=== PATIENT | female | born 1955 | race Two or more races ===

== ENCOUNTER 2023-07-29 11:24 | Inpatient (IN) | payer MEDICARE, MEDICAID ==
[~2023-07-29] VITALS: Ht 162.6 cm; Wt 74.6 kg
[2023-07-29] MEDS ORDERED: ONDANSETRON ODT 4 MG TAB PO ONE (12:45)
[2023-07-29] MEDS ORDERED: traMADol HCL 50 MG TAB PO ONE (12:45)
[2023-07-29 13:41] LABS: Basophils # (auto) 0.1 10 ^3/uL (0-0.2); Basophils % (auto) 0.9 % (0.0-2.0); Eosinophils # (auto) 0.1 10 ^3/uL (0-0.8); Eosinophils % (auto) 1.1 % (0.0-7.0); Hematocrit 37.1 % (36.0-46.0); Hemoglobin 12.4 g/dL (12.2-16.2); Lymphocytes # (auto) 2.2 10 ^3/uL (0.4-5.4); Lymphocytes % (auto) 20.4 % (10.0-50.0); Mean Corpuscular Hemoglobin 28.5 pg (28.0-32.0); Mean Corpuscular Hgb Conc. 33.3 g/dL (32.0-36.0); Mean Corpuscular Volume 85.6 fL (80.0-100.0); Monocytes # (auto) 0.9 10 ^3/uL (0-1.3); Monocytes % (auto) 8.5 % (0.0-12.0); Neutrophils # (auto) 7.6 10 ^3/uL (1.6-8.6); Neutrophils % (auto) 69.1 % (37.0-80.0); Nucleated Red Blood Cells % 0.1 %; Red Blood Cells 4.34 10^6/uL (4.0-5.20); Red Cell Distribution Width 14.1 % (11.8-14.3)
[2023-07-29 13:59] LABS: INR 1.09 (0.9-1.15); Partial Thromboplastin Time 29.9 SEC (24.5-34.5); Prothrombin Time 11.4 sec (9.3-11.8)
[2023-07-29 14:03] LABS: Alanine Aminotransferase 22 U/L (7-40); Albumin 4.7 g/dL (3.2-4.8); Alkaline Phosphatase 75 U/L (46-116); Anion Gap 9 (5-15); Aspartate Aminotransferase 19 U/L (13-40); Bilirubin, Total 0.5 mg/dL (0.2-1.0); Blood Urea Nitrogen 11 mg/dL (9-23); Calcium 9.5 mg/dL (8.5-10.1); Carbon Dioxide 26 mmol/L (20-30); Chloride 105 mmol/L (98-107); Glucose 111 mg/dL (74-106); Potassium 3.8 mmol/L (3.5-5.1); Sodium 140 mmol/L (136-145); Total Protein 7.7 g/dL (5.7-8.2)
[2023-07-29] MEDS ORDERED: DOCUSATE SOD 100 MG CAP PO PRN (16:30)
[2023-07-29] MEDS ORDERED: ONDANSETRON HCL 4 MG/2 ML VIAL IV PRN (16:30)
[2023-07-29] MEDS ORDERED: DEXTROSE (50%) 50ML SYRG IV PRN (16:30)
[2023-07-29] MEDS: ACCU-CHEK COMFORT CURVE STRIP VI SCH ×2 (16:56→22:09)
[2023-07-29] MEDS: InsuLIN REG 1unit/0.01ml Soln (100units/ml) SC SCH ×2 (16:56→22:12)
[2023-07-29 17:05] VITALS: PULSE 83; RESP 17; O2SAT 96
[2023-07-29 17:45] VITALS: BP 117/41; PULSE 72; RESP 20; TEMP 98.1; O2SAT 93
[2023-07-29] MEDS ORDERED: LOSA50TA46 PO (18:35)
[2023-07-29] MEDS ORDERED: CHOL20007 OR (18:35)
[2023-07-29] MEDS ORDERED: NIFE90TA75 PO (18:35)
[2023-07-29] MEDS ORDERED: PRAV20TA3 PO (18:35)
[2023-07-29] MEDS ORDERED: METF-490 PO (18:35)
[2023-07-29] MEDS: SODIUM CHLORIDE 0.9% 1,000 ML IV SCH (19:15)
[2023-07-29 19:30] VITALS: PULSE 78; RESP 18; O2SAT 96
[2023-07-29 22:00] VITALS: BP 132/57; PULSE 84; RESP 17; TEMP 98.6; O2SAT 96
[2023-07-29] MEDS: MORPHINE SULFATE INJ 2 MG/ml SYRG IV PRN (22:08)
[2023-07-29] MEDS ORDERED: traMADol HCL 50 MG TAB PO PRN (22:45)
[2023-07-30] VITALS (7 sets, daily range): BP systolic 124–151; BP diastolic 59–75; PULSE 69–89; RESP 14–18; TEMP 98.3–98.9; O2SAT 92–97
[2023-07-30 05:49] LABS: Basophils # (auto) 0.1 10 ^3/uL (0-0.2); Basophils % (auto) 0.8 % (0.0-2.0); Eosinophils # (auto) 0.2 10 ^3/uL (0-0.8); Eosinophils % (auto) 2.2 % (0.0-7.0); Hematocrit 35.7 % (36.0-46.0); Lymphocytes # (auto) 1.5 10 ^3/uL (0.4-5.4); Lymphocytes % (auto) 18.6 % (10.0-50.0); Mean Corpuscular Hemoglobin 28.9 pg (28.0-32.0); Mean Corpuscular Hgb Conc. 33.5 g/dL (32.0-36.0); Mean Corpuscular Volume 86.3 fL (80.0-100.0); Monocytes # (auto) 0.9 10 ^3/uL (0-1.3); Monocytes % (auto) 11.2 % (0.0-12.0); Neutrophils # (auto) 5.3 10 ^3/uL (1.6-8.6); Neutrophils % (auto) 67.2 % (37.0-80.0); Nucleated Red Blood Cells % 0.1 %; Red Blood Cells 4.13 10^6/uL (4.0-5.20); Red Cell Distribution Width 13.9 % (11.8-14.3); White Blood Cell 7.9 10^3/uL (4.4-10.8)
[2023-07-30] MEDS: InsuLIN REG 1unit/0.01ml Soln (100units/ml) SC SCH ×4 (06:10→21:20)
[2023-07-30] MEDS: ACCU-CHEK COMFORT CURVE STRIP VI SCH ×4 (06:10→21:19)
[2023-07-30 06:14] LABS: Alanine Aminotransferase 19 U/L (7-40); Albumin 4.1 g/dL (3.2-4.8); Alkaline Phosphatase 76 U/L (46-116); Anion Gap 7 (5-15); Aspartate Aminotransferase 10 U/L (13-40); BUN/Creatinine Ratio 18.6 (10.0-20.0); Blood Urea Nitrogen 11 mg/dL (9-23); Calcium 8.9 mg/dL (8.7-10.4); Carbon Dioxide 26 mmol/L (20-30); Chloride 107 mmol/L (98-107); Glucose 123 mg/dL (74-106); Sodium 140 mmol/L (136-145)
[2023-07-30 06:15] LABS: Bilirubin, Total 0.4 mg/dL (0.2-1.0); Total Protein 6.7 g/dL (5.7-8.2)
[2023-07-30] MEDS: SODIUM CHLORIDE 0.9% 1,000 ML IV SCH ×2 (12:02→21:19)
[2023-07-30] MEDS ORDERED: traMADol HCL 50 MG TAB PO PRN (12:45)
[2023-07-30 14:55] LABS: Urine Bacteria MOD /hpf (None Seen); Urine Blood Negative /uL (Negative); Urine Clarity Clear (Clear); Urine Color Colorless (Yellow); Urine Protein, UAD Negative (Negative); Urine Specific Gravity 1.008 (1.001-1.035); Urine Urobilinogen Normal (Negative); Urine WBC 3 /hpf (0 - 5); Urine pH 5.5 (5.0-8.0)
[2023-07-31 05:00] VITALS: BP 131/65; PULSE 60; RESP 14; TEMP 98.1; O2SAT 98
[2023-07-31 05:25] LABS: Basophils # (auto) 0.1 10 ^3/uL (0-0.2); Basophils % (auto) 1.3 % (0.0-2.0); Eosinophils # (auto) 0.2 10 ^3/uL (0-0.8); Eosinophils % (auto) 2.3 % (0.0-7.0); Hematocrit 36.3 % (36.0-46.0); Lymphocytes # (auto) 2.1 10 ^3/uL (0.4-5.4); Lymphocytes % (auto) 28.2 % (10.0-50.0); Mean Corpuscular Hemoglobin 28.4 pg (28.0-32.0); Mean Corpuscular Hgb Conc. 33.1 g/dL (32.0-36.0); Mean Corpuscular Volume 85.6 fL (80.0-100.0); Monocytes # (auto) 0.8 10 ^3/uL (0-1.3); Monocytes % (auto) 10.2 % (0.0-12.0); Neutrophils # (auto) 4.4 10 ^3/uL (1.6-8.6); Nucleated Red Blood Cells % 0.1 %; Red Blood Cells 4.24 10^6/uL (4.0-5.20); Red Cell Distribution Width 13.9 % (11.8-14.3); White Blood Cell 7.5 10^3/uL (4.4-10.8)
[2023-07-31 05:49] LABS: Calcium 8.9 mg/dL (8.7-10.4); Chloride 108 mmol/L (98-107); Sodium 139 mmol/L (136-145)
[2023-07-31 05:50] LABS: Anion Gap 7 (5-15); Carbon Dioxide 24 mmol/L (20-30)
[2023-07-31 05:55] LABS: BUN/Creatinine Ratio 14.5 (10.0-20.0); Blood Urea Nitrogen 9 mg/dL (9-23); Glucose 133 mg/dL (74-106)
[2023-07-31] MEDS: ACCU-CHEK COMFORT CURVE STRIP VI SCH ×2 (06:20→11:59)
[2023-07-31] MEDS: InsuLIN REG 1unit/0.01ml Soln (100units/ml) SC SCH ×2 (06:21→11:30)
[2023-07-31 08:00] VITALS: PULSE 68; RESP 16; O2SAT 96
[2023-07-31 08:45] VITALS: BP 153/63; PULSE 69; RESP 17; TEMP 98.7; O2SAT 96
[2023-07-31] MEDS: SODIUM CHLORIDE 0.9% 1,000 ML IV SCH (09:08)
[2023-07-31] MEDS: MORPHINE SULFATE INJ 2 MG/ml SYRG IV PRN (09:10)
[2023-07-31] MEDS ORDERED: LOSARTAN POTASSIUM 50 MG TAB PO SCH (10:00)
[2023-07-31] MEDS ORDERED: IBUP1TAB4 PO (12:10)
[2023-07-31 12:48] VITALS: BP 133/58; PULSE 79; RESP 18; TEMP 98.2; O2SAT 95
[2023-07-31 16:00] VITALS: BP 125/76; PULSE 78; RESP 18; TEMP 97.8; O2SAT 96
== END 2023-07-31 16:40 | disposition home or self-care (01) | DRG 563 ==
LOC: ER 11:24 → OVERFLOW 16:30 → WEST WING 17:38
PROVIDERS: ADMIT Nurse Practitioner Family; ATTEND Nurse Practitioner Family
DX: S52.502A Unspecified fracture of the lower end of left radius, initial encounter for closed fracture (principal); I69.354 Hemiplegia and hemiparesis following cerebral infarction affecting left non-dominant side; S52.612A Displaced fracture of left ulna styloid process, initial encounter for closed fracture; D72.829 Elevated white blood cell count, unspecified; W01.0XXA Fall on same level from slipping, tripping and stumbling without subsequent striking against object, initial encounter; E11.9 Type 2 diabetes mellitus without complications; E78.5 Hyperlipidemia, unspecified; I10 Essential (primary) hypertension; Z82.3 Family history of stroke; Y92.830 Public park as the place of occurrence of the external cause; Y99.8 Other external cause status; Y93.66 Activity, soccer
CPT/HCPCS: 36415; 71045; 73110; 80048; 80053; 81001; 82962; 83036; 85025; 85610; 85730; 86850; 86900; 86901; 96360; G0378; J1815; J2405; Q0162